=== PATIENT | female | born 1930 | race Caucasian/White ===

== ENCOUNTER 2018-05-31 08:57 | Outpatient (CLI) | payer MEDICARE ==
[2018-05-31] MEDS ORDERED: Iopamidol 370 76% 100 ML VIAL ONE (14:07)
== END 2018-05-31 08:58 | disposition home or self-care (01) ==
LOC: BICCT 08:57
PROVIDERS: ATTEND Urology
DX: N13.39 Other hydronephrosis (principal); N20.0 Calculus of kidney; M84.454A Pathological fracture, pelvis, initial encounter for fracture; M84.48XA Pathological fracture, other site, initial encounter for fracture; I71.4 Abdominal aortic aneurysm, without rupture; I05.9 Rheumatic mitral valve disease, unspecified
CPT/HCPCS: 74178; 82565

== ENCOUNTER 2019-06-15 13:50 | Outpatient (CLI) | payer MEDICARE ==
--- NOTE | 2019-06-15 14:14 | RAD ---
EXAM: XR Chest Pa Lat STANDARD PROVIDED CLINICAL HISTORY: Chronic cough COMPARISON: 03/13/2019 FINDINGS: Cardiac and mediastinal silhouette is unchanged in appearance. Vascular calcification involves the ao rtic arch. Large hiatal hernia is again seen. No definite focal consolidation, pleural fluid or pneumothorax apparent. Spinal degenerative changes, vertebroplasty changes and remote right-sided rib fractures are redemonstrated, as is thoracic kyphosis. IMPRESSION: No evidence for an acute cardiopulmonary process.
== END 2019-06-15 13:51 | disposition home or self-care (01) ==
LOC: BICRAD 13:50
PROVIDERS: ATTEND Family Medicine
DX: R05 Cough (principal)
CPT/HCPCS: 71046

== ENCOUNTER 2019-08-07 12:52 | Outpatient (CLI) | payer MEDICARE ==
--- NOTE | 2019-08-07 13:19 | RAD ---
EXAM: 3 views of the index finger HISTORY: Right index finger pain COMPARISON: None FINDINGS: There is no evidence of acute fracture or dislocation. No soft tissue swelling is seen. Mod erate degenerative changes are present in the interphalangeal joints of the fingers.. No radiopaque foreign body is seen. IMPRESSION: Moderate degenerative changes without acute osseous abnormality.
== END 2019-08-07 12:53 | disposition home or self-care (01) ==
LOC: BICRAD 12:52
PROVIDERS: ATTEND Family Medicine
DX: S69.91XA Unspecified injury of right wrist, hand and finger(s), initial encounter (principal); M19.041 Primary osteoarthritis, right hand

== ENCOUNTER 2019-09-20 12:52 | Outpatient (CLI) | payer MEDICARE ==
--- NOTE | 2019-09-20 13:11 | RAD ---
LEFT TIBIA FIBULA 2 VIEWS: HISTORY: Left leg pain. FINDINGS: Evidence of diffuse subcutaneous edema. New prosthesis in adequate position. Mild degenerative cintron ge at the ankle. No fracture or acute osseous abnormality. IMPRESSION: No acute osseous abnormality. POS: GERMAN
== END 2019-09-20 12:53 | disposition home or self-care (01) ==
LOC: BICRAD 12:52
PROVIDERS: ATTEND Family Medicine
DX: M79.605 Pain in left leg (principal)

== ENCOUNTER 2019-11-30 10:32 | Inpatient (IN) | payer MEDICARE ==
[2019-11-30 11:09] LABS: #Eosinphils 0.1 thou/uL (0.0-0.7); #Lymphocytes 1.1 thou/uL (1.20-3.40); #Monocytes 0.5 thou/uL (0.11-0.59); #Neutrophils 3.2 thou/uL (1.40-6.50); %Basophils 0.2 % (0.0-1.0); %Eosinophils 1.9 % (0.0-10.0); %Lymphocytes 23.3 % (21.0-51.0); %Neutrophils 64.7 % (42.0-75.0); Hemoglobin 11.6 g/dL (12.0-16.0); Mean Corpuscular HGB CONC 31.7 g/dL (32.0-36.0); Mean Corpuscular Hemoglobin 27.5 pg (27.0-31.0); Mean Corpuscular Volume 86.8 fL (78.0-98.0); Mean Platelet Volume 8.4 fL (7.4-10.4); Platelet Count 201 thou/uL (130-400); RBC Distribution Width 15.8 % (11.5-14.5); Red Blood Cell (RBC) Count 4.19 mill/uL (4.20-5.40); White Blood Cell (WBC) Count 4.9 thou/uL (4.8-10.8)
[2019-11-30 11:32] LABS: ALT (SGPT) Less than 7 U/L (8-55); AST (SGOT) 15 U/L (5-34); Albumin 3.8 g/dL (3.4-4.8); Alkaline Phosphatase 81 U/L (40-110); Anion Gap 14 mmol/L (10-20); BUN (Urea Nitrogen) 13 mg/dL (9.8-20.1); Bilirubin, Total 0.6 mg/dL (0.2-1.2); Calc. Creatinine Clearance 0 mL/min (70-130); Calcium 9.1 mg/dL (7.8-10.44); Carbon Dioxide 26 mmol/L (23-31); Chloride 103 mmol/L (98-107); Estimated GFR-MDRD 79; Globulin 3.3 g/dL (2.4-3.5); Glucose 93 mg/dL (83-110); Potassium 4.1 mmol/L (3.5-5.1); Protein, Total 7.1 g/dL (6.0-8.3); Sodium 139 mmol/L (136-145)
[2019-11-30] MEDS ORDERED: Labetalol HCl 100 MG/20 ML VIAL ONE (12:28)
--- NOTE | 2019-11-30 12:30 | CT ---
CT OF THE BRAIN WITHOUT CONTRAST: COMPARISON: None. HISTORY: Dizziness, ataxia, and vision changes. TECHNIQUE: Multiple contiguous axial images were obtained in a CT of the brain without contrast. FINDINGS: There is confluent hypodensity in the left occipital lobe consistent with a left SCHEDULING MANAGER infarction. No volume loss is seen and this infarction is likely subacute rather than remote. No intracranial hemor rhage or extraaxial fluid collection is seen. There are scattered hypodensities in the subcortical a nd periventricular white matter, likely secondary to small-vessel ischemic disease. IMPRESSION: Subacute left SCHEDULING MANAGER distribution infarction. POS: TPC
[2019-11-30] MEDS ORDERED: Aspirin Chewable 81 MG TAB ONE (12:33)
[2019-11-30 13:37] LABS: Bilirubin Negative (Negative); Blood, Urine Trace (Negative); Clarity Clear (Clear); Glucose, Urine (Dipstick) Normal (Negative); Leukocyte Negative Leu/uL (Negative); Nitrite Negative (Negative); Protein, Urine (Dipstick) Negative (Neg-Trace); RBC/HPF 0-3 HPF (0-3); Squamous Epithelial 0-3 HPF (0-3); Urobilinogen Normal mg/dL (Less than 2)
[2019-11-30 13:48] LABS: Bacteria/HPF 1+ HPF (None Seen)
[2019-11-30] MEDS ORDERED: Bisacodyl 5 MG TAB PO PRN (17:05)
[2019-11-30] MEDS ORDERED: Ondansetron PF 4 MG/2 ML Vial IVP PRN (17:05)
[2019-11-30] MEDS ORDERED: hydrALAZINE 20 MG/ML VIAL SLOW IVP PRN (17:09)
[2019-11-30] MEDS ORDERED: Labetalol HCl 100 MG/20 ML VIAL SLOW IVP PRN (17:09)
--- NOTE | 2019-11-30 17:43 | HP ---
PRIMARY CARE PROVIDER: Ceci Wick MD CHIEF COMPLAINT: Dizziness. HISTORY OF PRESENT ILLNESS: Ms. Haro is a pleasant 89-year-old lady, who was seen at [facility] on November 30, 2019. The patient works at a car dealership. Yesterday, she got out of work around noon. After she got home, she started feeling lightheaded. She describes it as a constant sensation of dizziness, feeling as if she was in a fog, not accompanied by nausea or vomiting. She denies any chest pain or shortness of breath. She never had these symptoms before. She denies any vision changes. She denies any weakness anywhere. The sensation of dizziness does not appear to be limited to any particular positions of the head or with posture. She did not show up for work today. Her granddaughter was called and she went to the patient's house and brought her to the emergency room. The patient reports that her dizziness improved after she got to the emergency room. Her granddaughter reports that her blood pressure was significantly elevated when she came to the emergency room and her symptoms started improving after the blood pressure improved. REVIEW OF SYSTEMS: All systems were reviewed and found to be negative except for the pertinent positives mentioned above. PAST MEDICAL HISTORY: Hypertension, rectal cancer, status post surgery, chemotherapy and radiation, and two leaky valves. PAST SURGICAL HISTORY: Appendectomy, rectal tumor surgery, bilateral knee replacement, left rotator cuff repair, partial gastrectomy, PEG tube placement. SOCIAL HISTORY: The patient denies tobacco use, alcohol use, or recreational drug use. She lives at home alone. She is independent with activities of daily living. FAMILY HISTORY: Significant for stroke in her mother. CODE STATUS: I discussed her code status. She is full code. ALLERGIES: NO KNOWN DRUG ALLERGIES. CURRENT MEDICATIONS: 1. Aspirin 81 mg daily. 2. Lasix 20 mg 2 times a day. 3. Lisinopril 10 mg daily. 4. Omeprazole 20 mg as needed before meals for reflux. PHYSICAL EXAMINATION: GENERAL: Ms. Haro is awake and alert, not in acute distress. VITAL SIGNS: Blood pressure is 180/75, pulse 70, respiratory rate 16, and oxygen saturation 96% on room air. She is afebrile. EYES: No scleral icterus. No conjunctival pallor. ENT: Moist mucosal membranes. No oropharyngeal erythema or exudate. NECK: Supple, nontender. Trachea is midline. RESPIRATORY: Accessory muscles of breathing are not active. Chest wall movements are symmetric bilaterally. Lungs are clear to auscultation without wheeze, rhonchi, or crepitations. CARDIOVASCULAR: S1 and S2 are heard, regular. Peripheral pulses palpable. ABDOMEN: Soft, nontender. Bowel sounds are heard. NEUROLOGIC: Cranial nerves 2 through 12 are intact. No focal motor or sensory deficits. Deep tendon reflexes 2+, plantars downgoing bilaterally. MUSCULOSKELETAL: Power is 5/5 in all 4 extremities. SKIN: No rashes or subcutaneous nodules. LYMPHATIC: No cervical lymphadenopathy. PSYCHIATRIC: Normal mood, normal affect. The patient is oriented to person, place, and time. LABORATORY DATA AND INVESTIGATIONS: Ms. Haro's labs and investigations were reviewed. A 12-lead electrocardiogram shows normal sinus rhythm with premature atrial complexes. Noncontrast CT scan of the brain showed subacute left HEALTH POLICY NURSE distribution infarction. She has an unremarkable CBC, unremarkable comprehensive metabolic profile, normal troponin I, and urinalysis that is negative for nitrite and leukocyte esterase. ASSESSMENT AND PLAN: Ms. Haro is a pleasant 89-year-old lady, who was seen at [facility] on November 30, 2019. Her problem list includes: 1. Hypertensive urgency: Ms. Haro is presenting with hypertensive urgency. She will be admitted to the hospital for further management. We will add p.r.n. medications for blood pressure management. Vital signs will be checked and antihypertensives titrated as needed. 2. Ischemic cerebrovascular accident: Ms. Haro is presenting with ischemic cerebrovascular accident in the right posterior cerebral artery region, likely subacute. She will be admitted to the hospital for further management. I will switch her to Aggrenox from aspirin. I will also start her on statin and check fasting lipid profile. I will check MRI brain, carotid Dopplers, and 2D echocardiogram. Neurology Service will be consulted for opinion and help with management. 3. History of rectal cancer: Not an active issue at this time. Many thanks for allowing me to participate in your patient's care. Please feel free to contact me with any questions or concerns. LEVEL OF RISK: Moderate. LEVEL OF COMPLEXITY: Moderate. Job ID: [id number]
--- NOTE | 2019-11-30 19:54 | ULT ---
Ultrasound Doppler duplex carotid: DATE: 11/30/2019 HISTORY: 89-year-old female with acute stroke. TECHNIQUE: Grayscale, color-flow, and spectral analysis, of major arteries of neck. FINDINGS: Multifocal moderate calcified atheromatous plaque at bilateral distal common carotid arteries, proxim al internal carotid arteries, including carotid bulbs. Highest peak systolic velocities in the internal carotid arteries: 115 cm/s on the right and 150 cm/s on the left, with end diastolic velocities of 20 cm/s on the right and 35 cm/s on the left. ICA/CCA ratios 1.3 on the right and 1.5 on the left. Vertebral artery flow antegrade bilaterally. IMPRESSION: 1. Moderate atherosclerotic disease of bilateral common and internal carotid arteries. 2. Less than 70% stenosis in the left internal carotid. 3. No hemodynamically significant stenosis in right internal carotid.
[2019-11-30 20:37] VITALS: BMI 17.6
[2019-11-30] MEDS: Atorvastatin Calcium 40 MG TAB PO SCH (21:33)
[2019-11-30] MEDS: Aggrenox 200-25mg CAP PO SCH (21:33)
[2019-12-01] MEDS: Acetaminophen 325 MG TAB PO PRN (01:12)
[2019-12-01 05:34] LABS: #Eosinphils 0.1 thou/uL (0.0-0.7); #Lymphocytes 0.8 thou/uL (1.20-3.40); #Monocytes 0.6 thou/uL (0.11-0.59); #Neutrophils 5.6 thou/uL (1.40-6.50); %Basophils 0.2 % (0.0-1.0); %Eosinophils 1.2 % (0.0-10.0); %Lymphocytes 10.9 % (21.0-51.0); %Monocytes 8.2 % (0.0-10.0); %Neutrophils 79.4 % (42.0-75.0); Hemoglobin 10.4 g/dL (12.0-16.0); Mean Corpuscular Hemoglobin 27.3 pg (27.0-31.0); Mean Corpuscular Volume 85.5 fL (78.0-98.0); Mean Platelet Volume 8.2 fL (7.4-10.4); Platelet Count 175 thou/uL (130-400); RBC Distribution Width 15.7 % (11.5-14.5)
[2019-12-01 06:04] LABS: Anion Gap 9 mmol/L (10-20); BUN (Urea Nitrogen) 14 mg/dL (9.8-20.1); Calc. Creatinine Clearance 46 mL/min (70-130); Calcium 8.4 mg/dL (7.8-10.44); Carbon Dioxide 26 mmol/L (23-31); Cardiac Risk 3.4 (Less than 4.5); Chloride 105 mmol/L (98-107); Cholesterol 126 mg/dl (< 200 Desired); Estimated GFR-MDRD Greater than 90; Glucose 94 mg/dL (83-110); HDL Cholesterol 37 mg/dL (>60 Neg Risk); LDL Cholesterol, Calculated 76 mg/dL; Potassium 4.2 mmol/L (3.5-5.1); Sodium 136 mmol/L (136-145); Triglycerides 66 mg/dL (Less than 150)
[2019-12-01] MEDS ORDERED: Aspirin 81 mg Enteric Coated Tablet PO SCH (09:00)
--- NOTE | 2019-12-01 09:51 | MRI ---
MRI BRAIN WITHOUT CONTRAST: HISTORY: Dizziness with visual problems. CVA CORRELATION: CT scan from 11/30/2019. FINDINGS: There is restricted diffusion with low signal on ADC map and T2 prolongation in the left occipital lo be consistent with a recent left REGIONAL ECONOMIC LIAISON infarction. There are multiple foci of T2 prolongation in the periventricular white matter, consistent with chronic small vessel ischemic disease. The ventricular size is appropriate and the basilar cisterns are patent. No evidence of acute hemorrhage, midline shift or abnormal extra-axial fluid collections is seen. The visualized paranasal sinuses and mastoid air cells are well-aerated. IMPRESSION: Recent left REGIONAL ECONOMIC LIAISON infarction.
[2019-12-01] MEDS: Aggrenox 200-25mg CAP PO SCH ×2 (10:07→21:39)
[2019-12-01] MEDS: Enoxaparin Sodium 40 MG/0.4 ML SYRINGE SC SCH (10:07)
--- NOTE | 2019-12-01 11:11 | CON ---
DATE OF CONSULTATION: 12/01/2019 CONSULTING PHYSICIAN: Hospitalist Service. IMPRESSION: 1. Right posterior cerebral artery stroke with minimal visual field alteration. 2. Aspirin failure. PLAN: 1. Add Aggrenox 1 twice a day. 2. Low-dose statin. 3. PT and OT assessments. HISTORY OF PRESENT ILLNESS: Ms. Haro is an 89-year-old woman who is quite bright an independent. 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 She drives her own car. She lives independently in her own home. She noticed a sudden change in her vision. She presented to the emergency room sometime afterward. Her initial CT scan showed evidence of an acute area of infarction in the left posterior cerebral artery distribution. Followup MRI showed similar findings. A carotid ultrasound showed some partial stenosis on the left, which was below 70%. The right was clear. Her lab work including a CBC, serum chemistries, and urine were unremarkable. Her cholesterol ratio was 3.4. She reports mild headache today. PAST MEDICAL HISTORY: Hypertension. ALLERGIES: TOMATOES. SOCIAL HISTORY: No tobacco or alcohol. FAMILY HISTORY: Noncontributory. REVIEW OF SYSTEMS: Ten-system review of systems is otherwise negative. PHYSICAL EXAMINATION: VITAL SIGNS: Blood pressure 186/79, pulse 80, respirations 22, and temperature 98.5. HEENT: Pupils equal and reactive. Conjunctivae clear. Oropharynx clear. NECK: Supple. No lymphadenopathy. EXTREMITIES: Some degenerative changes in the joints, but otherwise unremarkable. She has limited mobility in both shoulders. NEUROLOGIC: She is alert and appropriate. Her speech is fluent and clear. Cranial nerves appear to be intact. Visual dickson seem to be intact to confrontation. Motor exam showed good strength bilaterally. There is no fix or drift. There is no tremor or dysmetria present. Sensations intact to touch. Plantar response was upgoing on the right and downgoing on the left. Gait was not tested. SUMMARY: This is an elderly lady with a thrombotic stroke in the left posterior cerebral artery territory. I agree with your plan of treatment. Job ID: [id number]
--- NOTE | 2019-12-01 14:05 | PDOC.HOSPP ---
- Subjective Encounter Date: 12/01/19 Encounter Time: 07:00 Subjective: Pt seen for followup re: ischemic CVA. Dizziness is better today. - Objective Vital Signs & Weight: Vital Signs (12 hours) Temp Pulse Pulse Pulse Resp BP BP 12/01/19 11:01 76 81 172/81 H 191/81 H 12/01/19 11:00 98.5 F 76 21 H 12/01/19 07:40 12/01/19 07:00 98.5 F 80 22 H 12/01/19 03:25 98.5 F 73 18 BP Pulse Ox 12/01/19 11:01 12/01/19 11:00 172/81 H 95 12/01/19 07:40 95 12/01/19 07:00 186/79 H 95 12/01/19 03:25 143/67 H 95 Weight Admit Weight 100 lb Weight 100 lb I&O: 11/30/19 12/01/19 12/02/19 06:59 06:59 07:59 Intake Total 120 600 Balance 120 600 Result Diagrams: 12/01/19 05:14 12/01/19 05:14 Additional Labs: Labs and MARs reviewed by me EKG Reviewed by me: Yes (Tele: NSR) Hospitalist ROS - Review of Systems Constitutional: denies: fever, chills, sweats, weakness, malaise Respiratory: denies: cough, shortness of breath, SOB with excertion, sputum, wheezing Cardiovascular: denies: chest pain, palpitations, orthopnea, paroxysmal noc. dyspnea, edema, light headedness Genitourinary: denies: dysuria, frequency, incontinence, hematuria, retention Skin: denies: rash, lesions, luna, bruising Neurological: reports: other (dizziness). denies: weakness, numbness, incoordination, change in speech, confusion, seizures - Medication Medications: Active Medications Generic Name Dose Route Start Last Admin Trade Name Freq PRN Reason Stop Dose Admin Acetaminophen 650 mg 11/30/19 17:05 12/01/19 01:12 Tylenol PO 650 mg Q4H PRN Administration Headache/Fever/Mild Pain (1-3) Atorvastatin Calcium 40 mg 11/30/19 21:00 11/30/19 21:33 Lipitor PO 40 mg HS FRITZ Administration Dipyridamole/Aspirin 1 cap 11/30/19 21:00 12/01/19 10:07 Aggrenox PO 1 cap BID FRITZ Administration Enoxaparin Sodium 40 mg 12/01/19 09:00 12/01/19 10:07 Lovenox SC 40 mg 0900 FRITZ Administration - Exam General Appearance: awake alert Eye: anicteric sclera ENT: moist mucosa Neck: supple, symmetric, no thyromegaly, no lymphadenopathy Heart: RRR, no gallops, no rubs, normal peripheral pulses Respiratory: CTAB, no wheezes, no rales, no ronchi Gastrointestinal: soft, non-tender, non-distended, normal bowel sounds Neurological: cranial nerve grossly intact, normal sensation to touch, no weakness, no focal deficits Psychiatric: normal affect, normal behavior, A&O x 3 Hosp A/P (1) Ischemic cerebrovascular accident (CVA) Code(s): I63.9 - CEREBRAL INFARCTION, UNSPECIFIED Status: Acute (2) Vertigo Code(s): R42 - DIZZINESS AND GIDDINESS Status: Acute (3) Carotid artery disease Code(s): I77.9 - DISORDER OF ARTERIES AND ARTERIOLES, UNSPECIFIED Status: Acute (4) HTN (hypertension) Code(s): I10 - ESSENTIAL (PRIMARY) HYPERTENSION Status: Chronic - Plan PT/OT, out of bed/ambulate Continue Aggrenox. Continue statin. Hypertensive urgency improved. Consult CV surgery re: carotid artery disease.
[2019-12-01] MEDS: Atorvastatin Calcium 40 MG TAB PO SCH (21:39)
[2019-12-02] MEDS: Acetaminophen 325 MG TAB PO PRN ×2 (01:58→20:15)
--- NOTE | 2019-12-02 04:23 | PDOC.EVN ---
Event Note - Event Note Event Note: RN called - Pt has Headache - No changes in NIH. Probably due to Aggrenox. Will consider CT brain if NIH changes. Please d/w Neuro in AM for alternative. Later had 17 beats of SVT. Labs pending. Will add low dose Metoprolol.
[2019-12-02] MEDS ORDERED: traMADol HCl 50 MG TAB PO SCH (04:30)
[2019-12-02 04:58] LABS: #Eosinphils 0.2 thou/uL (0.0-0.7); #Lymphocytes 0.8 thou/uL (1.20-3.40); #Monocytes 0.6 thou/uL (0.11-0.59); #Neutrophils 4.8 thou/uL (1.40-6.50); %Basophils 0.5 % (0.0-1.0); %Eosinophils 2.4 % (0.0-10.0); %Neutrophils 75.1 % (42.0-75.0); Mean Corpuscular HGB CONC 31.9 g/dL (32.0-36.0); Mean Corpuscular Hemoglobin 27.2 pg (27.0-31.0); Mean Corpuscular Volume 85.4 fL (78.0-98.0); Mean Platelet Volume 8.3 fL (7.4-10.4); Platelet Count 175 thou/uL (130-400); RBC Distribution Width 15.7 % (11.5-14.5); Red Blood Cell (RBC) Count 4.05 mill/uL (4.20-5.40); White Blood Cell (WBC) Count 6.3 thou/uL (4.8-10.8)
[2019-12-02] MEDS ORDERED: Magnesium 2 GM/50 ML 2 GM in Premix Bag 1 BAG IVPB SCH (05:00)
[2019-12-02] MEDS ORDERED: Metoprolol Tartrate 25 MG TAB PO SCH (05:00)
[2019-12-02 05:20] LABS: Anion Gap 9 mmol/L (10-20); BUN (Urea Nitrogen) 12 mg/dL (9.8-20.1); Calc. Creatinine Clearance 44 mL/min (70-130); Calcium 8.5 mg/dL (7.8-10.44); Carbon Dioxide 27 mmol/L (23-31); Chloride 104 mmol/L (98-107); Estimated GFR-MDRD 88; Glucose 98 mg/dL (83-110); Potassium 4.1 mmol/L (3.5-5.1); Sodium 136 mmol/L (136-145)
[2019-12-02 05:54] LABS: Phosphorus 3.1 mg/dL (2.3-4.7)
[2019-12-02] MEDS: Aggrenox 200-25mg CAP PO SCH ×3 (09:32→20:17)
[2019-12-02] MEDS: Metoprolol Tartrate 25 MG TAB PO SCH ×2 (09:32→20:16)
[2019-12-02] MEDS: Enoxaparin Sodium 40 MG/0.4 ML SYRINGE SC SCH (09:32)
--- NOTE | 2019-12-02 11:14 | CT ---
CT ANGIOGRAM NECK WITH CONTRAST: DATE: 12/02/2019 HISTORY: 89-year-old female with acute left HEALTH SUPPORT SPECIALIST territory cerebral infarction. Carotid stenosis. TECHNIQUE: After IV contrast injection, arterial bolus chasing technique scan performed from 1.5 cm inferior to edin to lower orbits Coronal and sagittal 3-D MIP reconstructions. FINDINGS: All major arteries are very tortuous. Multifocal moderate and severe atherosclerotic calcification of arteries. Aortic arch: No dissection or aneurysm. Brachiocephalic: No high-grade stenosis. Right subclavian: Mild stenosis at origin. No high-grade stenosis. Left subclavian: Mild stenosis at origin. No high-grade stenosis. Right vertebral: No high-grade stenosis. Left vertebral: No high-grade stenosis. Right common carotid: No high-grade stenosis. Right internal carotid: Mild stenosis at origin. No high-grade stenosis. Left common carotid: No high-grade stenosis. Left internal carotid: Mild stenosis at origin. No high-grade stenosis. IMPRESSION: 1. No hemodynamically significant stenosis. 2. Significant atherosclerotic disease: Multifocal heavily calcified atheromatous plaque. 3. All major arteries are very tortuous.
--- NOTE | 2019-12-02 12:57 | CON ---
DATE OF CONSULTATION: 12/02/2019 REASON FOR CONSULTATION: Paroxysmal atrial tachycardia. PRIMARY PHARMACY ASSISTANT: Lino Sewell MD HISTORY OF PRESENT ILLNESS: Ms. Haro is a very pleasant 89-year-old white female, who comes to the hospital for a stroke. She did not show up to work. 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 She is 89 years old. Daughter went to her house and she found that she could not get up, because she was extremely dizzy. She was brought in, was found to have a left HEAD OF MARKETING ANALYTICS infarction and admitted for further evaluation. She has been on the ekg monitor and she had a nonsustained run of atrial tachycardia earlier last night. This was asymptomatic and lasted only 11 beats. She denies any chest pain, tightness, or pressure. She follows with Dr. Sewell for severe MR and lower extremity edema, thought to be related to MR and pulmonary hypertension. PAST MEDICAL HISTORY: 1. Sciatic nerve pain. 2. Hypertension. 3. Hiatal hernia. 4. GERD. 5. Severe mitral regurgitation. 6. Chronic lower extremity edema. 7. Rectal cancer, status post chemotherapy and radiation. OUTPATIENT MEDICATIONS: 1. Aspirin 81 a day. 2. Omeprazole 40 mg a day. 3. Furosemide 10 mg daily. 4. Lisinopril 10 mg daily. ALLERGIES: NO KNOWN DRUG ALLERGIES. SOCIAL HISTORY: No alcohol, tobacco, or drugs. Drinks 2 cups of coffee a day. FAMILY HISTORY: Mother with a stroke. Brother with sudden cardiac , probably [place]. PAST SURGICAL HISTORY: 1. Appendectomy. 2. Rectal tumor removal. 3. Bilateral knee replacement. 4. Left rotator cuff repair. 5. Partial gastrectomy. 6. PEG tube placement in the past. REVIEW OF SYSTEMS: A 12-point review of systems was done and was all negative unless stated in the history of present illness. PHYSICAL EXAMINATION: VITAL SIGNS: Temperature 97.7, pulse 63, respiratory rate 17, saturating 96% on room air, and blood pressure 140/65. GENERAL: Awake, alert, and oriented x3. No distress. HEENT: Normocephalic and atraumatic. NECK: Supple. LUNGS: Have crackles at the bases. CARDIOVASCULAR: S1 and S2. There is a grade 3/6 holosystolic murmur at the apex read to the rest of the precordium. ABDOMEN: Soft. Positive bowel sounds. EXTREMITIES: 2+ edema. SKIN: Warm and dry. LABORATORY DATA: Laboratory work was reviewed. White count of 6.3, hemoglobin of 11, hematocrit of 34, and platelet count of 175. Chemistry was unremarkable. Triglycerides of 66, cholesterol 126, LDL of 76, and HDL of 37. UA was unremarkable except for 1+ bacteria, [address] of the brain done on admission showed a subacute left HEAD OF MARKETING ANALYTICS distribution infarct. MRI of the brain confirmed this. Echocardiogram done yesterday showed normal LV systolic function with an EF of 60% to 65% with LVH. There is severely dilated left atrium with severe mitral annular calcification and severe MR. Right ventricular systolic pressures were estimated at around [address] angiography showed no hemodynamically significant stenosis; however, there is multifocal moderate atherosclerosis and calcification of most of her cerebral arteries. ASSESSMENT: 1. Paroxysmal atrial tachycardia. Beta marcus is the treatment of choice for this. This is asymptomatic and very brief. 2. Acute/subacute cerebrovascular accident. 3. Severe mitral regurgitation with severely dilated left atrium. 4. Mild pulmonary hypertension, likely secondary to severe mitral regurgitation. PLAN: 1. Certainly, she is at high risk for atrial fibrillation/atrial flutter given her severely dilated atria and we may need to put in a LINQ implantable loop recorder before discharge to assess for embolic source from an embolic arrhythmia. We would wait until she is closer to being discharged as if we find atrial fibrillation during her hospitalization, she may not need monitoring with the LINQ. 2. Agree with beta marcus for her paroxysmal atrial tachycardia. This is asymptomatic and nonsustained. 3. For her severe MR, Dr. Sewell has discussed with her possibilities and she is not interested in any invasive interventions. Thank you for letting us to participate in the care of your patient. We will follow. Job ID: [id number]
--- NOTE | 2019-12-02 13:49 | PDOC.HOSPP ---
- Subjective Encounter Date: 12/02/19 Encounter Time: 07:40 Subjective: Pt seen for followup re: ischemic stroke. Dizziness better, no weakness. No palpitations. - Objective Vital Signs & Weight: Vital Signs (12 hours) Temp Pulse Resp BP Pulse Ox 12/02/19 11:46 97.7 F 63 17 140/65 96 12/02/19 07:30 97.5 F L 69 18 135/66 94 L 12/02/19 04:00 98.5 F 94 16 163/69 H 93 L Weight Admit Weight 100 lb Weight 100 lb I&O: 12/01/19 12/02/19 12/03/19 05:59 06:59 06:59 Intake Total 300 Balance 300 Result Diagrams: 12/02/19 04:52 12/02/19 04:52 Additional Labs: Labs and MARs reviewed by me EKG Reviewed by me: Yes (Tele: PAT) Hospitalist ROS - Review of Systems Cardiovascular: denies: chest pain, palpitations, orthopnea, paroxysmal noc. dyspnea, edema, light headedness Neurological: reports: other (dizziness). denies: weakness, numbness, incoordination, change in speech, confusion, seizures - Medication Medications: Active Medications Generic Name Dose Route Start Last Admin Trade Name Freq PRN Reason Stop Dose Admin Acetaminophen 650 mg 11/30/19 17:05 12/02/19 01:58 Tylenol PO 650 mg Q4H PRN Administration Headache/Fever/Mild Pain (1-3) Atorvastatin Calcium 40 mg 11/30/19 21:00 12/01/19 21:39 Lipitor PO 40 mg HS FRITZ Administration Dipyridamole/Aspirin 1 cap 11/30/19 21:00 12/02/19 09:32 Aggrenox PO 1 cap BID FRITZ Administration Enoxaparin Sodium 40 mg 12/01/19 09:00 12/02/19 09:32 Lovenox SC 40 mg 0900 FRITZ Administration Metoprolol Tartrate 12.5 mg 12/02/19 09:00 12/02/19 09:32 Lopressor PO 12.5 mg BID FRITZ Administration - Exam General Appearance: awake alert Eye: anicteric sclera ENT: moist mucosa Neck: supple Heart: RRR Respiratory: CTAB, no rales Gastrointestinal: soft, non-tender Extremities: no clubbing Neurological: cranial nerve grossly intact, no weakness Psychiatric: normal affect, normal behavior Hosp A/P (1) Ischemic cerebrovascular accident (CVA) Code(s): I63.9 - CEREBRAL INFARCTION, UNSPECIFIED Status: Acute (2) Vertigo Code(s): R42 - DIZZINESS AND GIDDINESS Status: Acute (3) Carotid artery disease Code(s): I77.9 - DISORDER OF ARTERIES AND ARTERIOLES, UNSPECIFIED Status: Acute (4) HTN (hypertension) Code(s): I10 - ESSENTIAL (PRIMARY) HYPERTENSION Status: Chronic - Plan No headache today AM, had headache overnightg. Continue Aggrenox, will switch to Plavix if headache recurs. Continue atorvastatin. Hypertensive urgency improved. CV surgery consulted re; carotid disease. Cardiology consultred re; PAT. Continue beta marcus.
[2019-12-02] MEDS ORDERED: Iopamidol-370 76% 500 ML 1 ML ONE (14:34)
--- NOTE | 2019-12-02 17:44 | CON ---
DATE OF CONSULTATION: 12/02/2019 REQUESTING PHYSICIAN: Dr. Mckeon. CHIEF COMPLAINT: Dizziness. HISTORY OF PRESENT ILLNESS: The patient is an 89-year-old woman who in spite of her advanced age and apparent frailty, still works. This past , the when she got home from work in the afternoon, she felt very dizzy and had a sensation of mentally being foggy. She did not show up at work Tuesday morning and family found her still dizzy and somewhat foggy and insisted she go to the hospital. Her symptoms had improved, by then she does not recall any focality to her symptoms and specifically denied any arm or leg weakness or paresthesias, any dysarthria, any drawing of her face or paresthesias involving in her face or any visual disturbances. CT scanning showed hypodensity in the left occipital lobe consistent with a left CANDLE MOLDER distribution infarction and this was confirmed by MRI. The patient says that she has had previous episodes of feeling lightheaded and feeling like her vision was dim or the room had turned odd colors suggestive of presyncope, but denies any monocular symptoms suggestive of amaurosis fugax and she denies any other focal weakness, paresthesias, or dysarthria consistent with TIAs. PAST MEDICAL HISTORY: Significant for rectal cancer, mitral regurgitation, hypertension, osteoporosis, and recurrent hiatal hernia. MEDICATIONS: Her home medications are: 1. Baby aspirin. 2. Multivitamins. 3. Lisinopril. Currently, she has been started on: 1. Lipitor 40 a day. 2. Aggrenox b.i.d. 3. Lopressor 12.5 mg b.i.d. ALLERGIES: SHE DENIES ANY MEDICAL ALLERGIES, BUT REPORTS AN ALLERGY TO TOMATOES. SOCIAL HISTORY: She does not smoke. FAMILY HISTORY: Significant for stroke in her mother. REVIEW OF SYSTEMS: As above. PHYSICAL EXAMINATION: GENERAL: She is an elderly, frail-appearing woman with significant kyphosis. VITAL SIGNS: Currently, her heart rate is around 70 and blood pressure 135/66. On arrival in the emergency room, her heart rate was 87, blood pressure 144/65. HEENT: She has no xanthelasma. NECK: She has a faint left carotid bruit. HEART: She has a harsh systolic murmur heard over most of the precordium, predominantly lower sternal border and apex that radiates into the axilla. I hear no obvious gallops. CHEST: Clear to auscultation. ABDOMEN: Soft and nontender. NEUROLOGIC: Cranial nerves 2 through 12 and upper and lower extremity strength appeared grossly normal. LABORATORY DATA: Her white count is 4.9, hemoglobin 11.6, hematocrit 36.4, platelets 201,000. Her chemistries were normal. Glucose was 93 on admission, BUN was 13, creatinine 0.7, albumin was 3.8. Fasting lipid showed a triglyceride of 66, cholesterol of 126 with LDL of 76 and HDL of 37. Her electrolytes, glucose, and renal function have all been good during this hospitalization. The most recent chest x-ray that I find in our system was from May of last year, which shows somewhat fibrotic appearance to her lungs, extensive aortic knob calcification and ectatic aorta with findings suggestive of hiatal hernia as well as what appears to represent two areas of cement to deal with compression fractures in her vertebral bodies. She has extensive descending aortic calcification and aortic knob calcification. Her CT and MRI of the brain are as described above. Carotid ultrasonography shows right-sided internal carotid velocities of 115, 85, and 101; common carotid velocities of 88, 85, and 64 for a ratio of 1.31. On the left side, her internal carotid velocities were 78, 91 and 150; and common carotid velocities were 99, 70, and 71 for a ratio of 1.51. There was plaque in both carotid bulbs, more so on the left than on the right. There is a bit of tortuosity demonstrated the peak velocity of 150 cm/second, on the left side was measured at an area where the proximal internal carotid came off at an angle of measurement was probably fairly parallel to the axis of the vessel, which may throw off the accuracy of that velocity measurement. After speaking with her in light of the convincing radiographic evidence of a left-sided CVA, even though her symptoms were more global than focal, I arranged for a CTA of her carotids. This shows extremely tortuous vessels, particularly on the left side even going down in intrathoracic portion of the common carotid, both of the internal carotids distally take hairpin curves before going on up into the brain. There is calcific plaquing associated with the left bulb, but there seems to be trivial, if any stenosis. IMPRESSION AND RECOMMENDATIONS: I think that it is unlikely that the patient's stroke is related to her left carotid disease and her advanced age and her apparent comorbidities based on her cardiomegaly and severe mitral regurgitation, the appearance of her lungs on chest x-ray and chest CT, I would be rather reluctant to pursue surgical intervention in any way. I probably arrange for ongoing surveillance and perhaps repeat carotid ultrasonography in 6 months instead of any year, but I am certainly not going to recommend surgical intervention at this time. Job ID: [id number]
[2019-12-02] MEDS: Atorvastatin Calcium 40 MG TAB PO SCH (20:17)
[2019-12-03] MEDS: Acetaminophen 325 MG TAB PO PRN (02:58)
[2019-12-03 04:52] LABS: #Eosinphils 0.3 thou/uL (0.0-0.7); #Lymphocytes 1.1 thou/uL (1.20-3.40); #Monocytes 0.6 thou/uL (0.11-0.59); #Neutrophils 2.9 thou/uL (1.40-6.50); %Basophils 0.2 % (0.0-1.0); %Eosinophils 5.9 % (0.0-10.0); %Lymphocytes 22.7 % (21.0-51.0); %Monocytes 12.7 % (0.0-10.0); %Neutrophils 58.6 % (42.0-75.0); Hemoglobin 10.7 g/dL (12.0-16.0); Mean Corpuscular Hemoglobin 27.5 pg (27.0-31.0); Mean Platelet Volume 8.4 fL (7.4-10.4); Platelet Count 170 thou/uL (130-400); RBC Distribution Width 15.8 % (11.5-14.5); Red Blood Cell (RBC) Count 3.87 mill/uL (4.20-5.40); White Blood Cell (WBC) Count 4.9 thou/uL (4.8-10.8)
[2019-12-03 05:08] LABS: Anion Gap 9 mmol/L (10-20); BUN (Urea Nitrogen) 11 mg/dL (9.8-20.1); Calc. Creatinine Clearance 43 mL/min (70-130); Calcium 8.5 mg/dL (7.8-10.44); Carbon Dioxide 27 mmol/L (23-31); Chloride 104 mmol/L (98-107); Estimated GFR-MDRD 86; Glucose 84 mg/dL (83-110); Potassium 4.2 mmol/L (3.5-5.1); Sodium 136 mmol/L (136-145)
[2019-12-03] MEDS ORDERED: Aggrenox 200-25mg CAP PO SCH (09:30)
[2019-12-03] MEDS: Metoprolol Tartrate 25 MG TAB PO SCH (09:36)
[2019-12-03] MEDS: Enoxaparin Sodium 40 MG/0.4 ML SYRINGE SC SCH (09:37)
--- NOTE | 2019-12-03 16:16 | PDOC.CPN ---
- Subjective Date: 12/03/19 Time: 16:14 Interval history: No new issues. - Review of Systems General: denies: fever/chills, weight/appetite/sleep changes, night sweats, fatigue Respiratory: denies: cough, congestion, shortness of breath, exercise intolerance Cardiovascular: denies: chest pain, palpitation, edema, paroxysmal nocturnal dyspnea, orthopnea Gastrointestinal: denies: nausea, vomiting, diarrhea, constipation, abd pain, GI bleeding Musculoskeletal: denies: pain, tenderness, stiffness, swelling, arthritis/ arthralgias Neurological: denies: numbness, syncope, seizure, weakness - Objective Allergies/Adverse Reactions: Allergies Allergy/AdvReac Type Severity Reaction Status Date / Time tomato [Tomato] Allergy Verified 01/10/14 14:00 Visit Medications: Current Medications Acetaminophen (Tylenol) 650 mg PO Q4H PRN PRN Reason: Headache/Fever/Mild Pain (1-3) Last Admin: 12/03/19 02:58 Dose: 650 mg Atorvastatin Calcium (Lipitor) 40 mg PO HS [facility] Last Admin: 12/02/19 20:17 Dose: 40 mg Bisacodyl (Dulcolax) 10 mg PO DAILYPRN PRN PRN Reason: Constipation Dipyridamole/Aspirin (Aggrenox) 1 cap PO BID [facility] Last Admin: 12/02/19 20:17 Dose: 1 cap Enoxaparin Sodium (Lovenox) 40 mg SC 0900 [facility] Last Admin: 12/03/19 09:37 Dose: 40 mg Hydralazine HCl (Apresoline) 10 mg SLOW IVP Q4H PRN PRN Reason: BP > 220/110 Labetalol HCl (Normodyne) 20 mg SLOW IVP Q1H PRN PRN Reason: BP > 220/110 Metoprolol Tartrate (Lopressor) 12.5 mg PO BID [facility] Last Admin: 12/03/19 09:36 Dose: 12.5 mg Ondansetron HCl (Zofran) 4 mg IVP Q6H PRN PRN Reason: Nausea/Vomiting Sodium Chloride (Flush - Normal Saline) 10 ml IVF PRN PRN PRN Reason: Saline Flush Vital Signs & Weight: Vital Signs Temp Pulse Pulse Pulse Resp BP BP 12/03/19 12:14 79 64 142/67 H 141/65 H 12/03/19 11:40 98.1 F 68 17 12/03/19 08:37 12/03/19 07:41 98.4 F 70 18 BP Pulse Ox 12/03/19 12:14 12/03/19 11:40 164/89 H 95 12/03/19 08:37 93 L 12/03/19 07:41 145/71 H 93 L Admit Weight 100 lb Weight 100 lb - Physical Exam General: alert & oriented x3 HEENT: mucus membranes moist Neck: supple neck Cardiac: regular rate and rhythm Lungs: clear to auscultation Neuro: weakness Abdomen: unremarkable Extremities: no edema Skin: clear Musculoskeletal: no pain - Labs Result Diagrams: 12/03/19 04:28 12/03/19 04:28 Troponin/CKMB Troponin I 0.020 ng/mL (< 0.028) 11/30/19 10:43
[2019-12-03 16:29] VITALS: BP 151/67; TEMP 98
--- NOTE | 2019-12-04 05:25 | DIS ---
DATE OF ADMISSION: 11/30/2019 DATE OF DISCHARGE: 12/03/2019 PRIMARY CARE PROVIDER: Ceci Wick MD. DISCHARGE DIAGNOSES: 1. Ischemic cerebrovascular accident. 2. Left posterior cerebral artery infarction. 3. Paroxysmal atrial tachycardia. CONDITION OF PATIENT ON THE DAY OF DISCHARGE: Stable. I assessed Ms. Haro on the day of discharge. She denies any chest pain or shortness of breath. Vital signs are stable. S1 and S2 are heard, regular. Lungs are clear to auscultation bilaterally. CONSULTATIONS DURING THIS HOSPITALIZATION: Neurology, Dr. Calvo and Cardiology, Dr. Camara. DISCHARGE MEDICATIONS: 1. Multivitamins one tab daily. 2. Aggrenox 25/200 mg two times a day. 3. Lipitor 40 mg at bedtime. 4. Lopressor 12.5 mg two times a day. HOSPITAL COURSE: Ms. Haro is a pleasant 89-year-old lady, who was admitted to [facility] on November 30, 2019 for dizziness. MRI of the brain showed recent left THERAPEUTIC SUPPORT STAFF infarction. She was seen by Therapy Services and by Neurology Service. She was switched from aspirin to Aggrenox. She was also started on statin. She had a run of multifocal atrial tachycardia. She was seen by Cardiology Service. She has been started on beta marcus. Her lisinopril was discontinued. She was acceptant for inpatient rehabilitation for further management. She is being discharged to [facility]. On the day of discharge, she has sodium 136, potassium 4.2, creatinine 0.65. White count 4900, hemoglobin 10.7, and platelet count 170,000. Many thanks for allowing me to participate in your patient's care. Please feel free to contact me with any questions or concerns. POST ACUTE CARE FOLLOWUP: With primary care provider in 1 week and with Neurology Service in 3 to 4 weeks. DIET: Heart healthy diet. ACTIVITY: As tolerated. DISCHARGE DESTINATION: [facility]. TIME SPENT: Total amount of time spent coordinating this discharge: 33 minutes. Job ID: [id number]
--- NOTE | 2019-12-04 11:29 | DIS ---
DATE OF ADMISSION: 11/30/2019 DATE OF DISCHARGE: 12/03/2019 ADDENDUM: Ms. Haro's 2D echocardiogram showed left ventricular ejection fraction of 60% to 65% and grade 2/3 diastolic dysfunction. She had severe mitral regurgitation. Right ventricle systolic pressure was elevated, estimated at 59 mmHg. Carotid Dopplers were reported as moderate atherosclerotic disease of bilateral common and internal carotid arteries, less than 70% stenosis in the left internal carotid and no hemodynamically significant stenosis in right internal carotid. She was seen by Cardiovascular Surgery, Dr. Benson. She had CT angiogram of the neck, which did not show any hemodynamically significant stenosis. She had significant arthrosclerotic disease and all major arteries were very tortuous. Cardiovascular surgeon recommends ultrasound of the carotids in 6 months. She will be advised to have that done through her primary care provider's office. Job ID: [id number]
--- NOTE | 2019-12-05 10:12 | PQF ---
GIAJOSÉ ANTONIO DAVID [id number] [facility] [id number] CLINICAL DOCUMENTATION IMPROVEMENT CLARIFICATION FORM: ICD-10 Updated PLEASE DO AN ADDENDUM TO THE PROGRESS NOTE WITH ANY DOCUMENTATION UPDATES OR ADDITIONS AND CARRY THROUGH TO DC SUMMARY. THANK YOU. Date: 12/05/19 ATTN: DR. WALKER Please exercise your independent, professional judgment in responding to the clarification form. Clinical indicators are provided on the bottom of this form for your review Please check appropriate box(s): [x ] Protein Calorie Malnutrition: [ ] Mild [ ] Moderate [ x] Severe [ ] Other Malnutrition (please specify) __ [ ] Underweight without malnutrition [ ] Cachexia [ ] Other diagnosis [ ] Unable to determine CLINICAL INDICATORS - SIGNS / SYMPTOMS / LABS / RESULTS AND LOCATION IN MR BMI 17.7 11/30 NUTRITION THERAPY ASSESSMENT * STAGE 1 PU SACROCOCCYGEAL * severe fat wasting to orbital region and triceps * severe muscle wasting to temporalis muscle, clavicles and shoulders * 17% weight loss over the past "few weeks," * <75% energy intake compared to estimated energy needs for > 1 month * suggestive of severe malnutrition in the context of chronic illness RISK FACTORS / RESULTS AND LOCATION IN MR 3-6 H&P (DENISE): * 89 YEAR OLD FEMALE * H RECTAL CANCER S/P SURGERY/CHEMO/RADIATION 3-7 NUTRITION THERAPY ASSESSMENT: * ADMITTEDLY POOR INTAKE PRIOR TO ADMIT. STATES SHE IS A AND USUALLY ONLY EATS BREATFAST (HER MAIN MEAL) AND A SNACK IN THE AFTERNOON. TREATMENT / RESULTS AND LOCATION IN MR 3/7 NUTRITION THERAPY ASSESSMENT 1) Continue current Heart healthy low sodium diet. 2) Recommend Ensure Enlive BID between meals. Moderate Malnutrition (in acute illness) Energy Intake: <75% of estimated energy requirement for > 7 days Weight Loss: 1-2%/1 week; 5%/ 1 month; 7.5%/3 months Other: mild body fat loss; mild muscle mass loss; mild fluid accumulation; Severe Malnutrition (in acute illness) Energy Intake: < 50% of estimated energy requirement for > 5 days Weight Loss: >1-2%/1 week; >5%/1 month; >7.5%/3 months Other: moderate body fat loss; moderate muscle mass loss; moderate- severe fluid accumulation; measurably reduced plasticator strength Moderate Malnutrition (in chronic illness) Energy Intake: <75% of estimated energy requirement for >1 month Weight Loss: 5%/1 month; 7.5%/3 months; 10%/6 months; 20%/1 year Other: mild body fat loss; mild muscle mass loss; mild fluid accumulation Severe Malnutrition (in chronic illness) Energy Intake: <75% of estimated energy requirement for >1 month Weight Loss: >5%/1 month; >7.5%/3 months; >10%/6 months; >20%/1 year Other: severe body fat loss; severe muscle mass loss; severe fluid accumulation ; measurably reduced plasticator strength THANK YOU, ALIE (This form is maintained as a part of the permanent medical record) 2015 [employer]. All Rights Reserved Alie Lee RN, BS [email or web address] [employer] [facility]
== END 2019-12-03 16:48 | DRG 64 ==
LOC: ERS 10:32 → ERHOLD 14:48 → 2SE 20:16
PROVIDERS: ADMIT Internal Medicine; ATTEND Internal Medicine
DX: I63.332 Cerebral infarction due to thrombosis of left posterior cerebral artery (principal); E43 Unspecified severe protein-calorie malnutrition; I47.1 Supraventricular tachycardia; Z68.1 Body mass index [BMI] 19.9 or less, adult; I27.20 Pulmonary hypertension, unspecified; Z96.653 Presence of artificial knee joint, bilateral; I10 Essential (primary) hypertension; I16.0 Hypertensive urgency; M81.0 Age-related osteoporosis without current pathological fracture; K21.9 Gastro-esophageal reflux disease without esophagitis; I34.0 Nonrheumatic mitral (valve) insufficiency; I25.10 Atherosclerotic heart disease of native coronary artery without angina pectoris; Z90.49 Acquired absence of other specified parts of digestive tract; Z93.1 Gastrostomy status; Z85.048 Personal history of other malignant neoplasm of rectum, rectosigmoid junction, and anus
CPT/HCPCS: 36415; 70450; 70498; 70551; 80048; 80053; 80061; 81001; 81003; 81015; 83735; 84100; 84484; 85025; 87086; 93005; 93306; 93880; 96374; J1650; J3475; Q9967